=== PATIENT | male | born 1955 | race Two or more races ===

== ENCOUNTER 2024-10-31 10:45 | Day surgery (SDC) | payer MEDICARE ==
[~2024-10-31] VITALS: Ht 182.9 cm; Wt 102.1 kg
[~2024-10-31 10:45] MED LIST: ALFU10TA23 PO; ERGO500029 PO; HYDR-3719 PO; OMEP40CA5 PO; SILD100T PO
[2024-10-31] MEDS ORDERED: LR 1,000 ML IV SCH (11:10)
[2024-10-31] MEDS ORDERED: PERCOCET 5MG/325MG TAB PO PRN (13:50)
[2024-10-31] MEDS ORDERED: NS (Normal Saline) 0.9% 500 ML IV SCH (13:50)
[2024-10-31] MEDS ORDERED: ACETAMINOPHEN 325 MG TAB PO PRN (13:50)
[2024-10-31] MEDS ORDERED: propofoL 200 MG/20 ML VIAL As Ordered ONE (14:17)
[2024-10-31] MEDS ORDERED: MIDAZOLAM INJ 2MG/2ML VIAL As Ordered ONE (14:17)
[2024-10-31] MEDS ORDERED: LIDOCAINE 2% 100MG/5ML SDV (FOR ANES.) As Ordered ONE (14:17)
[2024-10-31] MEDS ORDERED: fentaNYL 250 MCG/5 ML INJECTION As Ordered ONE (14:17)
[2024-10-31] MEDS ORDERED: ROCURONIUM BROMIDE 50MG/5ML VIAL As Ordered ONE (14:17)
[2024-10-31] MEDS ORDERED: ONDANSETRON 4MG 2ML VIAL As Ordered ONE (14:17)
[2024-10-31] MEDS: ceFAZolin SOD 2 GM in IV 1 EA IV ONE (14:24)
[2024-10-31] MEDS: HEPARIN SOD (PORCINE) 5000UNITS/ML 1ML VIAL/SYRINGE SQ ONE (14:30)
[2024-10-31] MEDS ORDERED: ACETAMINOPHEN 1000MG/100ML IV BAG As Ordered ONE (14:32)
[2024-10-31] MEDS ORDERED: ePHEDrine SULFATE 25 MG/5 ML(5MG/ML) SYRINGE As Ordered ONE (14:39)
[2024-10-31] MEDS ORDERED: LIDOCAINE 2% JELLY 6ML SYRINGE As Ordered ONE (14:52)
[2024-10-31] MEDS ORDERED: HYDROmorphone HCL 2MG/ML 1ML VIAL As Ordered ONE (15:01)
[2024-10-31] MEDS ORDERED: dexmedeTOMIDine (4MCG/ML)200MCG/50ML BTL (PRECEDEX) As Ordered ONE (15:13)
[2024-10-31] MEDS ORDERED: hydrALAZINE 20MG/ML 1ML VIAL As Ordered ONE (15:22)
[2024-10-31] MEDS ORDERED: HOME MED LIST COMPLETE! XX SCH (15:55)
[2024-10-31] MEDS: LIDOCAINE 1% SDV 30ML VIAL As Ordered ONE (18:07)
[2024-10-31] MEDS ORDERED: ONDANSETRON 4MG 2ML VIAL IV PRN (18:15)
[2024-10-31] MEDS ORDERED: fentaNYL 100 MCG/2 ML INJECTION IV PRN (18:15)
[2024-10-31 18:54] LABS: HEMATOCRIT 42.5 % (42.0-52.0); HEMOGLOBIN 14.7 g/dl (13.5-17.5); MEAN CORPUSCULAR HEMOGLOBIN 30.9 pg (27.0-33.0); MEAN CORPUSCULAR HGB CONC 34.6 g/dl (32.0-36.5); MEAN CORPUSCULAR VOLUME 89.5 fl (80.0-96.0); PLATELET COUNT, AUTOMATED 169 10^3/uL (150-450); RED BLOOD COUNT 4.75 10^6/uL (4.30-6.10); WHITE BLOOD COUNT 6.1 10^3/uL (4.0-10.0)
[2024-10-31] MEDS: ONDANSETRON 4MG 2ML VIAL IV PRN (19:02)
[2024-10-31] MEDS: oxyCODONE 5MG TAB PO PRN (19:02)
[2024-10-31] MEDS: HYDROMORPHONE HCL 0.5 MG/ 0.5 ML SYRINGE IV PRN (19:03)
[2024-10-31 19:16] LABS: BLOOD UREA NITROGEN 11 MG/DL (9-23); CALCIUM LEVEL 8.6 MG/DL (8.3-10.6); CARBON DIOXIDE LEVEL 25 MMOL/L (20-31); CHLORIDE LEVEL 102 MMOL/L (98-107); GLOMERULAR FILTRATION RATE > 60.0 (>49); GLUCOSE, FASTING 162 MG/DL (74-106); POTASSIUM SERUM 4.2 MMOL/L (3.5-5.1); SODIUM LEVEL 139 MMOL/L (136-145)
[2024-10-31 19:45] VITALS: BP 159/81; TEMP 97.5; O2SAT 93
[2024-10-31 20:15] VITALS: BP 154/81; TEMP 97.3; O2SAT 96
[2024-10-31 20:45] VITALS: BP 144/71; TEMP 97.2; O2SAT 94
[2024-10-31] MEDS: DOCUSATE SODIUM 100MG CAPSULE PO SCH (20:58)
[2024-10-31] MEDS: HEPARIN SOD (PORCINE) 5000UNITS/ML 1ML VIAL/SYRINGE SC SCH (21:09)
[2024-10-31] MEDS: ceFAZolin SOD 1 GM in DEXTROSE 5% (D5W) ADV/MINI-BAG 50 ML IV SCH (21:09)
[2024-10-31 21:45] VITALS: BP 147/70; TEMP 97.2; O2SAT 96
[2024-10-31 22:45] VITALS: BP 147/69; TEMP 97.3; O2SAT 96
[2024-10-31 23:45] VITALS: BP 147/69; TEMP 97.3; O2SAT 97
[2024-11-01 00:45] VITALS: BP 143/69; TEMP 97.3; O2SAT 97
[2024-11-01] MEDS: PERCOCET 5MG/325MG TAB PO PRN (00:55)
[2024-11-01 04:45] VITALS: BP 139/69; TEMP 97; O2SAT 96
[2024-11-01 06:12] LABS: HEMATOCRIT 39.6 % (42.0-52.0); HEMOGLOBIN 13.8 g/dl (13.5-17.5); MEAN CORPUSCULAR HEMOGLOBIN 31.7 pg (27.0-33.0); MEAN CORPUSCULAR HGB CONC 34.8 g/dl (32.0-36.5); MEAN CORPUSCULAR VOLUME 90.8 fl (80.0-96.0); PLATELET COUNT, AUTOMATED 177 10^3/uL (150-450); RED BLOOD COUNT 4.36 10^6/uL (4.30-6.10); WHITE BLOOD COUNT 7.8 10^3/uL (4.0-10.0)
[2024-11-01 06:40] LABS: BLOOD UREA NITROGEN 9 MG/DL (9-23); CALCIUM LEVEL 8.5 MG/DL (8.3-10.6); CARBON DIOXIDE LEVEL 29 MMOL/L (20-31); CHLORIDE LEVEL 101 MMOL/L (98-107); CREATININE FOR GFR 0.82 MG/DL (0.70-1.30); GLOMERULAR FILTRATION RATE > 60.0 (>49); GLUCOSE, FASTING 114 MG/DL (74-106); POTASSIUM SERUM 4.3 MMOL/L (3.5-5.1); SODIUM LEVEL 138 MMOL/L (136-145)
[2024-11-01 08:00] VITALS: BP 140/67; TEMP 97.3; O2SAT 96
[2024-11-01] MEDS: OMEPRAZOLE 20MG CAP PO SCH (08:37)
[2024-11-01] MEDS ORDERED: COLA100C5 PO (09:25)
[2024-11-01] MEDS ORDERED: CIPR-249 PO (09:25)
[2024-11-01 12:00] VITALS: BP 139/69; TEMP 97.5; O2SAT 95
[2024-11-01] MEDS: PERCOCET 5MG/325MG TAB PO ONE (12:16)
[2024-11-01 13:16] VITALS: O2SAT 96
== END 2024-11-01 13:55 | disposition home or self-care (01) ==
LOC: M SDC 10:45 → M MS5PR 19:45 → UNDOADMOB 19:45 → M SDC 11-01 13:55 → UNDODISOB 11-01 13:55
PROVIDERS: ADMIT Urology; ATTEND Urology
DX: C61 Malignant neoplasm of prostate (principal); E78.5 Hyperlipidemia, unspecified; E55.9 Vitamin D deficiency, unspecified; Z79.899 Other long term (current) drug therapy
CPT/HCPCS: 36415; 38571; 55866; 80048; 85027; 86850; 86900; 86901; 88305; 88309; 96365; 96366; 96372; J0131; J0360; J0665; J0690; J1100; J1171; J2250; J2405; J3010; S2900